=== PATIENT | male | born 1945 | race Caucasian/White ===

== ENCOUNTER → 2016-10-31 | Outpatient (REF) | payer MEDICARE ==
[2016-10-31 18:33] LABS: VITAMIN B12 LEVEL 244 PG/ML
[2016-10-31 18:34] LABS: FOLATE > 24.0 NG/ML
[2016-10-31 18:40] LABS: PERCENT SATURATION 6.2 % (19.7-50.0); TOTAL IRON BINDING CAPACITY 389 UG/DL (250-450)
== END ==
LOC: M LAB REF 08:30
PROVIDERS: ATTEND Internal Medicine
DX: D64.9 Anemia, unspecified (principal)

== ENCOUNTER 2019-11-21 12:58 | Emergency (ER) | payer MEDICARE ==
[2019-11-21] MEDS ORDERED: SUCCINYLCHOLINE 100 MG/5 ML SYRINGE (J0330) ONE (12:59)
[2019-11-21] MEDS ORDERED: VECURONIUM BROMIDE 10MG VIAL ONE (12:59)
[2019-11-21] MEDS ORDERED: AMMONIA AROMATIC INHALANT As Ordered ONE (13:12)
[2019-11-21] MEDS ORDERED: PROPOFOL 1,000 MG/100 ML VIAL As Ordered ONE (13:22)
--- NOTE | 2019-11-21 13:47 | REPVR ---
PROCEDURE INFORMATION: Exam: XR Chest, 1 View Exam date and time: 11/21/2019 1:31 PM Age: 74 years old Clinical indication: Other: Post intubaion; Additional info: Altered mental status TECHNIQUE: Imaging protocol: XR of the chest Views: 1 view. COMPARISON: CR PORTABLE CHEST X-RAY 11/21/2019 1:23 PM FINDINGS: Tubes, catheters and devices: Endotracheal tube terminates 15 mm above the deidre. Lungs: Interval improvement in right-sided airspace disease. Residual elevation of the right hemidiaphragm. Pleural space: Questionable small right pleural effusion. Heart/Mediastinum: Cardiomegaly and mediastinal widening. Bones/joints: Degenerative change. Gastrointestinal tract: Gaseous dilatation of the stomach. IMPRESSION: Endotracheal tube terminates 15 mm above the deidre. Additional findings as described above. Electronically signed by: Riaz Gurrola On 11/21/2019 13:46:08 PM
--- NOTE | 2019-11-21 13:52 | REPVR ---
PROCEDURE INFORMATION: Exam: CT Head Without Contrast Exam date and time: 11/21/2019 1:21 PM Age: 74 years old Clinical indication: Injury or trauma; Fall; Initial encounter; Concussion / head injury; With loss of consciousness; Additional info: Fall with loc TECHNIQUE: Imaging protocol: Computed tomography of the head without contrast. Radiation optimization: All CT scans at this facility use at least one of these dose optimization techniques: automated exposure control; mA and/or kV adjustment per patient size (includes targeted exams where dose is matched to clinical indication); or iterative reconstruction. Other technique: STROKE PROTOCOL was implemented. COMPARISON: CT Head without contrast 08/28/2015 1:37 PM FINDINGS: Brain: Combined 3.1 cm left subdural hematoma and 3.6 cm left epidural hematoma, producing 2.2 cm of midline shift to the right, with combined transtentorial and subfalcine components. Additional subarachnoid hemorrhage. Ventricles: Effacement of the left temporal horn and left lateral ventricle. Bones/joints: Nondepressed left temporoparietal skull fracture. Sinuses: Bilateral sphenoid sinus fluid. Left maxillary sinus mucoperiosteal disease. Mastoid air cells: No mastoid effusion. Soft tissues: Left temporoparietal scalp hematoma. IMPRESSION: 1. Combined 3.1 cm left subdural hematoma and 3.6 cm left epidural hematoma, producing 2.2 cm of midline shift to the right, with combined transtentorial and subfalcine components. 2. Nondepressed left temporoparietal skull fracture. 3. Additional findings as described above. THIS REPORT CONTAINS FINDINGS THAT MAY BE CRITICAL TO PATIENT CARE. The findings were verbally communicated via telephone conference with Dr. Stein at 1:51 PM EDT on 11/21/2019. The findings were acknowledged and understood. Electronically signed by: Riaz Gurrola On 11/21/2019 13:52:12 PM
[2019-11-21] MEDS ORDERED: MANNITOL 25% 12.5 GM/50 ML VIAL (J2150) IV ONE (14:00)
--- NOTE | 2019-11-21 14:00 | REPVR ---
PROCEDURE INFORMATION: Exam: XR Chest, 1 View Exam date and time: 11/21/2019 1:21 PM Age: 74 years old Clinical indication: Other: Post intubation TECHNIQUE: Imaging protocol: XR of the chest Views: 1 view. COMPARISON: No relevant prior studies available. FINDINGS: Tubes, catheters and devices: Malpositioned endotracheal tube in the left mainstem bronchus, which was subsequently repositioned. Lungs: Asymmetric elevation of the right hemidiaphragm and mild right-sided airspace disease. Pleural space: Questionable small right pleural effusion. Heart/Mediastinum: Cardiomegaly and mediastinal widening. Bones/joints: Mild degenerative change . Gastrointestinal tract: Gaseous dilatation of the stomach. IMPRESSION: 1. Malpositioned endotracheal tube in the left mainstem bronchus, which was subsequently repositioned. 2. Asymmetric elevation of the right hemidiaphragm and mild right-sided airspace disease. Electronically signed by: Riaz Gurrola On 11/21/2019 13:59:51 PM
--- NOTE | 2019-11-21 14:00 | REPVR ---
PROCEDURE INFORMATION: Exam: XR Chest, 1 View Exam date and time: 11/21/2019 1:21 PM Age: 74 years old Clinical indication: Other: Post intubation; Additional info: S/P intubation TECHNIQUE: Imaging protocol: XR of the chest Views: 1 view. COMPARISON: CR PORTABLE CHEST X-RAY 11/21/2019 1:23 PM FINDINGS: Tubes, catheters and devices: Reposition endotracheal tube terminates at the level of the deidre, and should be pulled back for optimal positioning. Lungs: Improved right-sided airspace disease. Pleural space: Questionable small right pleural effusion. Heart/Mediastinum: Borderline cardiomegaly and mild mediastinal widening. Diaphragm: Asymmetric elevation of the right hemidiaphragm. Bones/joints: Mild degenerative change. IMPRESSION: Repositioned endotracheal tube terminates at the level of the deidre, and should be pulled back for optimal positioning. Electronically signed by: Riaz Gurrola On 11/21/2019 14:00:47 PM
--- NOTE | 2019-11-21 14:06 | REPVR ---
PROCEDURE INFORMATION: Exam: CT Chest Without Contrast Exam date and time: 11/21/2019 1:43 PM Age: 74 years old Clinical indication: Abnormal findings; Abnormal radiologic exam of lung or chest; Additional info: R lung consolidation TECHNIQUE: Imaging protocol: Computed tomography of the chest without contrast. 3D rendering (Not supervised by radiologist): MIP and/or 3D reconstructed images were created by the technologist. Radiation optimization: All CT scans at this facility use at least one of these dose optimization techniques: automated exposure control; mA and/or kV adjustment per patient size (includes targeted exams where dose is matched to clinical indication); or iterative reconstruction. COMPARISON: CR Chest, 1 view 11/21/2019 1:26 PM FINDINGS: Thyroid: Inhomogeneous attenuation in the thyroid. Lungs: Interstitial prominence and asymmetric airspace disease, right greater than left. Pleural space: No significant pleural effusion. New para small quantity of intraluminal air in the right subclavian vein. Heart: No cardiomegaly. Mediastinal space: Prominent mediastinal and epicardial fat. Aorta: Calcification and ectasia of the thoracic aorta. Lines: Termination of endotracheal tube at the level of the deidre, which should be pulled back for optimal positioning. Lymph nodes: No enlarged lymph nodes. Upper abdomen: Fatty infiltration of the liver. Dilated air and fluid-filled stomach. Bones/joints: Degenerative change. IMPRESSION: 1. Termination of endotracheal tube at the level of the deidre, which should be pulled back for optimal positioning. 2. Interstitial prominence and asymmetric airspace disease, right greater than left. 3. Additional findings as described above. The aforementioned findings initiated a critical results communication pathway. An addendum will be issued at the time of clincian notification. Electronically signed by: Riaz Gurrola On 11/21/2019 14:05:46 PM
[2019-11-21 14:10] LABS: ABG BASE EXCESS -6.2 (-2.0-2.0); ABG O2 SATURATION 97.3 % (95.0-99.0); ABG PARTIAL PRESSURE CO2 36.2 mmHg (35.0-45.0); ABG PARTIAL PRESSURE O2 100.1 mmHg (75.0-100.0); ABG STANDARD HCO3 19.4 MEQ/L (22.0-26.0); ABG TOTAL CO2 20.1 MEQ/L (23.0-31.0); ABG pH (ARTERIAL) 7.337 UNITS (7.350-7.450)
[2019-11-21 14:26] LABS: BASO # 0.1 10^3/uL (0.0-0.2); BASO % 0.4 % (0.0-1.0); EOS # 0.1 10^3/uL (0.0-0.5); EOS % 0.6 % (0.0-3.0); HEMATOCRIT 35.6 % (42.0-52.0); HEMOGLOBIN 10.8 g/dl (13.5-17.5); LYMPH # 2.2 10^3/uL (1.5-5.0); LYMPH % 11.2 % (24.0-44.0); MEAN CORPUSCULAR HEMOGLOBIN 24.9 pg (27.0-33.0); MEAN CORPUSCULAR HGB CONC 30.3 g/dl (32.0-36.5); MEAN CORPUSCULAR VOLUME 82.2 fl (80.0-96.0); MONO # 1.3 10^3/uL (0.0-0.8); MONO % 6.4 % (0.0-5.0); NEUTROPHILS # 15.7 10^3/uL (1.5-8.5); NEUTROPHILS % 80.8 % (36.0-66.0); PLATELET COUNT, AUTOMATED 219 10^3/uL (150-450); RED BLOOD COUNT 4.33 10^6/uL (4.30-6.10); WHITE BLOOD COUNT 19.4 10^3/uL (4.0-10.0)
[2019-11-21] MEDS ORDERED: ATEN50TA2 (14:40)
[2019-11-21] MEDS ORDERED: LISI-538 (14:40)
[2019-11-21] MEDS ORDERED: GLIP10TA6 (14:40)
[2019-11-21] MEDS ORDERED: PRAV80TA2 (14:40)
[2019-11-21] MEDS ORDERED: JANU100T (14:40)
[2019-11-21] MEDS ORDERED: METF10004 (14:40)
[2019-11-21 14:43] VITALS: BP 151/71
[2019-11-21] MEDS ORDERED: VECURONIUM BROMIDE 10MG VIAL IV STA (14:52)
[2019-11-21] MEDS ORDERED: SUCCINYLCHOLINE INJ 200 MG/10 ML VIAL (J0330) IV STA (14:52)
[2019-11-21] MEDS ORDERED: propofoL 1,000 MG in IV 1 EA IV SCH (15:00)
[2019-11-21 15:05] LABS: ACETAMINOPHEN LEVEL 2.2 UG/ML (10.0-30.0); ALT/SGPT 33 U/L (12-78); BILIRUBIN,DIRECT 0.1 MG/DL (0.0-0.2); BILIRUBIN,TOTAL 0.3 MG/DL (0.2-1.0); BLOOD UREA NITROGEN 14 MG/DL (7-18); CALCIUM LEVEL 8.5 MG/DL (8.8-10.2); CARBON DIOXIDE LEVEL 24 MEQ/L (21-32); CHLORIDE LEVEL 110 MEQ/L (98-107); CREATININE FOR GFR 0.97 MG/DL (0.70-1.30); GLOMERULAR FILTRATION RATE > 60.0 (>42); GLUCOSE, FASTING 209 MG/DL (70-100); POTASSIUM SERUM 4.1 MEQ/L (3.5-5.1); SALICYLATE LEVEL < 1.7 MG/DL (5.0-30.0); SODIUM LEVEL 141 MEQ/L (136-145); TOTAL PROTEIN 5.8 GM/DL (6.4-8.2)
[2019-11-21 15:06] LABS: ETHYL ALCOHOL (ETHANOL) < 0.003 % (0.000-0.010)
--- NOTE | 2019-11-23 08:44 | ECGEPIP ---
[facility] - ED Test Date: 2019-11-21 Pat Name: ANDIE PEDROZA Department: Room: - Gender: Male Foam Caster: CARSON : 1945 Requested By: DAVID POWERS Order Number: [id number] Reading MD: Ana M Thomas Measurements Intervals Fisher Rate: 89 P: 25 TX: 171 QRS: -83 QRSD: 137 T: 7 QT: 417 QTc: 510 Interpretive Statements SINUS RHYTHM WITH OCCASIONAL SUPRAVENTRICULAR PREMATURE COMPLEXES RIGHT BUNDLE BRANCH BLOCK LEFT ANTERIOR FASCICULAR BLOCK ABNORMAL ECG SEE SCANNED DOWNTIME REPORT
== END 2019-11-21 14:48 | disposition short-term general hospital (02) ==
LOC: M ED 12:58 → EDBD 12:58 → M ED 14:48
DX: S06.4X9A Epidural hemorrhage with loss of consciousness of unspecified duration, initial encounter (principal); S06.6X9A Traumatic subarachnoid hemorrhage with loss of consciousness of unspecified duration, initial encounter; W18.39XA Other fall on same level, initial encounter; Y92.481 Parking lot as the place of occurrence of the external cause; E11.9 Type 2 diabetes mellitus without complications; E78.5 Hyperlipidemia, unspecified; Z79.899 Other long term (current) drug therapy; Z79.84 Long term (current) use of oral hypoglycemic drugs
CPT/HCPCS: 36600; 51702; 70450; 71045; 71250; 80048; 80076; 82803; 84443; 85025; 93005; 93041; 96365; 96375; 99291; G0480; J0330; J2150